=== PATIENT | male | born 1980 | race Caucasian/White ===

== ENCOUNTER 2017-12-03 06:42 | Emergency (ER) | payer SELFPAY ==
[2017-12-03 07:03] VITALS: BP 154/95; PULSE 75; RESP 17; TEMP 98.5; O2SAT 99
--- NOTE | 2017-12-03 07:23 | ED PDOC ---
HPI: General Adult Time Seen by Provider: 12/03/17 07:08 Chief Complaint (Nursing): ENT Problem Chief Complaint (Provider): ENT Problem History Per: Patient History/Exam Limitations: no limitations Onset/Duration Of Symptoms: Days (x 3) Current Symptoms Are (Timing): Still Present Additional Complaint(s): 37 year old male with a history of diabetes presents to the ED with right ear pain for the last three days. The pain began to worsen today, prompting ED visit. Patient reports that he takes no medications currently to manage his diabetes. He was previously on 500 mg of Metformin but has not taken medications in 2 years. Denies fever, cough, runny nose and diarrhea. PMD: none provided Past Medical History Reviewed: Historical Data, Nursing Documentation, Vital Signs Vital Signs: Last Vital Signs Temp 98.5 F 12/03/17 06:53 Pulse 75 12/03/17 06:53 Resp 17 12/03/17 06:53 BP 154/95 H 12/03/17 06:53 Pulse Ox 99 12/03/17 07:53 - Medical History PMH: Diabetes - Surgical History Surgical History: No Surg Hx - Family History Family History: States: Unknown Family Hx - Home Medications Home Medications: Ambulatory Orders Medication Instructions Recorded metFORMIN [glucOPHAGE] 500 mg PO BID #30 tab 12/25/15 Amoxicillin/Potassium Clav 1 each PO TID #30 tablet 12/03/17 [Augmentin 500-125 Tablet] metFORMIN [glucOPHAGE] 500 mg PO DAILY #30 tab 12/03/17 - Allergies Allergies/Adverse Reactions: Allergies Allergy/AdvReac Type Severity Reaction Status Date / Time No Known Allergies Allergy Verified 12/25/15 08:31 Review of Systems ROS Statement: Except As Marked, All Systems Reviewed And Found Negative ENT: Positive for: Ear Pain (right ) Physical Exam - Reviewed Nursing Documentation Reviewed: Yes Vital Signs Reviewed: Yes - Physical Exam Appears: Positive for: Non-toxic, No Acute Distress Head Exam: Positive for: ATRAUMATIC, NORMAL INSPECTION, NORMOCEPHALIC Skin: Positive for: Normal Color, Warm, DRY Eye Exam: Positive for: Normal appearance, PERRL, Other (mild tenderness in periocular area on right side) ENT: Positive for: Other (tenderness upon manipulation of canal in his right ear and in mandibular area; copious amount of whiteish discharge inside right ear). Negative for: Normal ENT Inspection ((-) tenderness in mastoid area) Neck: Positive for: Normal, Painless ROM Cardiovascular/Chest: Positive for: Regular Rate, Rhythm Respiratory: Positive for: Normal Breath Sounds. Negative for: Respiratory Distress - ECG O2 Sat by Pulse Oximetry: 99 (RA) Pulse Ox Interpretation: Normal Medical Decision Making Medical Decision Making: Time: 07:28 Impression: malignant otitis externa Patient is stable and will be discharged home. Patient will be given prescription for Metformin and Amoxicillin for his diabetes and ear infection. Referrals will also be given to help manage his diabetes. Return to the ED if symptoms persist or worsen. Scribe Attestation: Documented by Pricilla Hernández, acting as a scribe for Elisabeth Myers MD Provider Scribe Attestation: All medical record entries made by the Scribe were at my direction and personally dictated by me. I have reviewed the chart and agree that the record accurately reflects my personal performance of the history, physical exam, medical decision making, and the department course for this patient. I have also personally directed, reviewed, and agree with the discharge instructions and disposition. Disposition - Clinical Impression Clinical Impression: Otitis media, Diabetes mellitus - Patient ED Disposition Is Patient to be Admitted: No Doctor Will See Patient In The: Office Counseled Patient/Family Regarding: Diagnosis, Need For Followup, Rx Given - Disposition Referrals: [facility] [Outside] [facility] [Outside] [facility] [Outside] Disposition: Routine/Home Disposition Time: 07:29 Condition: STABLE Prescriptions: Amoxicillin/Potassium Clav [Augmentin 500-125 Tablet] 1 each PO TID #30 tablet metFORMIN [glucOPHAGE] 500 mg PO DAILY #30 tab Instructions: Ear Infections (Otitis Media), Type 2 Diabetes Forms: [facility] (Yakut) - POA Present On Arrival: None
== END 2017-12-03 07:46 | disposition home or self-care (01) ==
LOC: H.ER 06:42
DX: E11.9 Type 2 diabetes mellitus without complications (principal); Z79.84 Long term (current) use of oral hypoglycemic drugs

== ENCOUNTER 2018-09-29 09:29 | Emergency (ER) | payer OTHER ==
[2018-09-29] MEDS ORDERED: Sodium Chloride 0.9% 1,000 ML IV STA (09:46)
--- NOTE | 2018-09-29 09:57 | ED PDOC ---
Hyperglycemia/Hypoglycemia Time Seen by Provider: 09/29/18 09:30 Chief Complaint (Nursing): High Blood Sugar Chief Complaint (Provider): Blurry vision, elevated blood sugar History Per: Patient History/Exam Limitations: no limitations Onset/Duration Of Symptoms: Days, Persistent Current Symptoms Are (Timing): Still Present Current Diabetic Medications: Oral Medication (non comp x 1 week) Causative (Exacerbating) Factor(s): Missed Taking Medication Associated Infectious Symptoms: Urinary Frequency : The patient does not have any of the infectious symptoms listed except for those marked. Treatment Prior To Provider Evaluation: Brian ([phone]) Additional Complaint(s): 38yo male with history of diabetes, comes to ER reporting blurry vision x 2 days and urinary frequency x 2 months. Patient states he has been noncompliant with h is metformin for the past 1 week as he ran out of medication. He otherwise denies any chest pain, shortness of breath, abdominal pain, nausea, vomiting, headache, numbness or tingling. No other complaints. PMD: None provided Past Medical History Reviewed: Historical Data, Nursing Documentation, Vital Signs Vital Signs: Last Vital Signs Temp 98.3 F 09/29/18 09:37 Pulse 104 H 09/29/18 09:37 Resp 16 09/29/18 09:37 BP 134/100 H 09/29/18 09:37 Pulse Ox 99 09/29/18 09:37 - Medical History PMH: Diabetes - Surgical History Surgical History: No Surg Hx - Family History Family History: States: Unknown Family Hx - Home Medications Home Medications: Ambulatory Orders Medication Instructions Recorded metFORMIN [glucOPHAGE] 500 mg PO BID #30 tab 12/25/15 metFORMIN [glucOPHAGE] 500 mg PO DAILY 10 Days tab 09/29/18 - Allergies Allergies/Adverse Reactions: Allergies Allergy/AdvReac Type Severity Reaction Status Date / Time No Known Allergies Allergy Verified 12/25/15 08:31 Review of Systems ROS Statement: Except As Marked, All Systems Reviewed And Found Negative Constitutional: Negative for: Fever, Chills, Weakness Eyes: Positive for: Vision Change (blurry vision) Cardiovascular: Negative for: Chest Pain, Light Headedness Respiratory: Negative for: Shortness of Breath Genitourinary Male: Positive for: Frequency Neurological: Negative for: Weakness, Numbness, Headache, Dizziness Physical Exam - Reviewed Nursing Documentation Reviewed: Yes Vital Signs Reviewed: Yes - Physical Exam Appears: Positive for: Non-toxic Head Exam: Positive for: ATRAUMATIC, NORMAL INSPECTION, NORMOCEPHALIC Skin: Positive for: Normal Color Eye Exam: Positive for: Normal appearance, EOMI, PERRL Neck: Positive for: Normal, Painless ROM, Supple Cardiovascular/Chest: Positive for: Regular Rate, Rhythm. Negative for: Tachycardia Respiratory: Positive for: Normal Breath Sounds. Negative for: Respiratory Distress Pulses-Radial (L): 2+ Pulses-Radial (R): 2+ Gastrointestinal/Abdominal: Positive for: Normal Exam, Soft. Negative for: Tenderness, Guarding, Rebound Back: Positive for: Normal Inspection. Negative for: L CVA Tenderness, R CVA Tenderness Extremity: Positive for: Normal ROM. 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 Negative for: Motor/Sensory Deficits - Laboratory Results Result Diagrams: 09/29/18 10:14 09/29/18 10:14 Interpretation Of Abn Labs: elevated glucose and ketone in urine Urine dip results: Positive for: Ketones - ECG ECG: Positive for: Interpreted By Me, Viewed By Me ECG Rhythm: Positive for: Normal QRS, Normal ST Segment, Sinus Rhythm O2 Sat by Pulse Oximetry: 99 (RA) Pulse Ox Interpretation: Normal - Progress ED Course And Treament: 1218: Stable. AAOx3. Pain free. Tolerated PO. No blurry vision. FU with pcp. Glucose improved. Medical Decision Making Medical Decision Making: Blurry vision, urine frequency Plan: -- Labs -- Urinalysis -- EKG -- IV Fluids 1101 Repeat blood sugar is 276 after 1L IV Fluids ----- ScribeAttestation: Documented byXiomara Sanchez, acting as a scribe for William Hansen MD. Provider ScribeAttestation: All medical record entries made by the Scribe were at my direction and personally dictated by me. I have reviewed the chart and agree that the record accurately reflects my personal performance of the history, physical exam, medical decision making, and the department course for this patient. I have also personally directed, reviewed, and agree with the discharge instructions and disposition. Disposition - Clinical Impression Clinical Impression: Hyperglycemia - Patient ED Disposition Is Patient to be Admitted: No Counseled Patient/Family Regarding: Studies Performed, Diagnosis, Need For Followup, Rx Given - Disposition Referrals: [facility] [Outside] - 09/30/18 Disposition: Routine/Home Disposition Time: 11:30 Condition: STABLE Additional Instructions: Return if not better in 3 days. Prescriptions: metFORMIN [glucOPHAGE] 500 mg PO DAILY 10 Days tab Instructions: Hyperglycemia, Adult Forms: [facility] (Hungarian) Print Language: UPPER SORBIAN
[2018-09-29 10:10] LABS: VENOUS BLOOD GAS BASE EXCESS -0.1 mmol/L (0.0-2.0); VENOUS BLOOD GAS PCO2 52 mmHg (40-60); VENOUS BLOOD GAS PO2 25 mm/Hg (30-55); VENOUS BLOOD PH 7.32 (7.32-7.43)
[2018-09-29 10:21] LABS: BASO % 0.7 % (0.0-2.0); EOS # 0.1 K/uL (0.0-0.7); HEMOGLOBIN 16.4 g/dL (12.0-18.0); LYMPH # 1.7 K/uL (1.0-4.3); LYMPH % 31.3 % (20.0-40.0); MEAN CELL VOLUME 86.3 fl (80.0-94.0); MEAN CORPUSCULAR HEMOGLOBIN 29.4 pg (27.0-31.0); MEAN PLATELET VOLUME 10.3 fl (7.2-11.7); MONO # 0.3 K/uL (0.0-0.8); MONO % 5.5 % (0.0-10.0); NEUT # 3.3 K/uL (1.8-7.0); NEUT % 61.5 % (50.0-75.0); RBC 5.57 Mil/uL (4.40-5.90); WHITE BLOOD COUNT 5.4 K/uL (4.8-10.8)
[2018-09-29 10:27] LABS: URINE BILIRUBIN NEGATIVE (NEGATIVE); URINE BLOOD NEGATIVE (NEGATIVE); URINE CLARITY CLEAR (Clear); URINE COLOR STRAW (YELLOW); URINE GLUCOSE (UA) >=500 mg/dL (NEGATIVE); URINE LEUKOCYTE ESTERASE NEG Leu/uL (Negative); URINE PROTEIN NEGATIVE (NEGATIVE); URINE UROBILINOGEN 0.2-1.0 mg/dL (0.2-1.0)
[2018-09-29 10:32] LABS: ALB/GLOB RATIO 1.4 (1.0-2.1); ALBUMIN 4.3 g/dL (3.5-5.0); ALT/SGPT 34 U/L (21-72); AST/SGOT 25 U/L (17-59); BLOOD UREA NITROGEN 19 mg/dl (9-20); CALCIUM 9.1 mg/dL (8.4-10.2); GFR NON-AFRICAN AMERICAN > 60
[2018-09-29] MEDS ORDERED: Insulin Regular 100 units/ml IV STA (11:36)
[2018-09-29] MEDS ORDERED: Insulin Regular 100 units/ml ONE (11:59)
--- NOTE | 2018-09-29 12:16 | CARD ---
APPROVED REPORT Date of service: 09/29/2018 EKG Measurement Heart [id number] <Conclusion> Normal sinus rhythm Normal Electrocardiogram
[2018-09-29 12:46] VITALS: BP 130/78; PULSE 84; RESP 19; TEMP 97.6; O2SAT 98
== END 2018-09-29 12:47 | disposition home or self-care (01) ==
LOC: H.ER 09:29
DX: E11.65 Type 2 diabetes mellitus with hyperglycemia (principal); Z79.84 Long term (current) use of oral hypoglycemic drugs; Z91.14 Patient's other noncompliance with medication regimen
CPT/HCPCS: 80053; 81003; 82803; 82948; 84484; 85025; 93005; 99283; J7030

== ENCOUNTER 2018-11-09 08:07 | Day surgery (SDC) | payer SELFPAY ==
[2018-11-06 10:45] VITALS: BMI 31.1
[2018-11-06 10:49] VITALS: RESP 18
[2018-11-09] MEDS ORDERED: cefTRIAXone (Rocephin) 1 gm Inj ONE (10:39)
[2018-11-09] MEDS ORDERED: Midazolam 2 MG/2 ML VIAL ONE (10:46)
[2018-11-09] MEDS ORDERED: Propofol 10 mg/ml Inj (20 ML) ONE (10:46)
[2018-11-09] MEDS ORDERED: Lidocaine 1% Inj (20ml) ONE (10:50)
[2018-11-09] MEDS ORDERED: Lactated Ringer's 1,000 ML IV ONE (11:10)
[2018-11-09] MEDS ORDERED: HYDROmorphone 0.5 mg/0.5 ml ISec IVP PRN (11:22)
[2018-11-09 11:27] VITALS: O2SAT 99
[2018-11-09] MEDS ORDERED: Lactated Ringer's 1,000 ML IV SCH (11:30)
[2018-11-09 14:15] VITALS: BP 113/77; PULSE 68; TEMP 98.5
== END 2018-11-09 14:17 | disposition home or self-care (01) ==
LOC: H.OPSURG 08:07
PROVIDERS: ATTEND Urology
DX: N47.1 Phimosis (principal); N48.1 Balanitis
CPT/HCPCS: 54161; 82948; 88304; J0696; J2250; J2405; J2704; J2765; J3010; J7120